=== PATIENT | female | born 1965 | race Caucasian/White ===

== ENCOUNTER 2018-02-12 12:10 | Emergency (ER) | payer MEDICAID ==
[2018-02-12 12:32] VITALS: BP 147/88; TEMP 99.2; O2SAT 97
[2018-02-12] MEDS ORDERED: KETOROLAC TROMETHAMINE INJ 30 MG/ML VIAL IM ONE (12:47)
--- NOTE | 2018-02-12 12:50 | ED.PDOC ---
History of Present Illness - General Chief Complaint: Back Pain or Injury Stated Complaint: Lumbar back discomfort, radiation of leg Time Seen by Provider: 02/12/18 12:35 Source: patient - History of Present Illness Initial Comments: the patient is a 52-year-old female presenting to the emergency room secondary to acute exacerbation of chronic low back pain. The patient has known and well-defined spinal stenosis of her lumbar spine given her chronic pain primarily down her left leg according to her. The patient apparently has insurance in [place] but not for [place]. She is in town for another month. She reports that she cannot take Lyrica or gabapentin secondary to shakiness and swelling. She has not been on any prescription medications for the last couple of months. She reports that she was scheduled for a laminectomy 3 or 4 months ago but had to leave the state to come to [facility] here in [place]. No incontinence. No weakness. No change in symptoms other than worsening of pain in her low back and down her left leg. No recent trauma. The patient did receive epidural steroid injections in the past. she reports that she has been doing stretching and exercising to help reduce back pain. She has been trying to do weight loss. Timing/Duration: unsure Severity: moderate Improving Factors: nothing Worsening Factors: nothing Associated Symptoms: denies symptoms Allergies/Adverse Reactions: Allergies NO KNOWN ALLERGY Allergy (Verified 06/26/15 14:17) Home Medications: Ambulatory Orders Levothyroxine Sodium [Synthroid] 100 mcg PO DAILY 07/12/15 Ljvqaxxrclytv-Eivd-Arouyqjuoo [Fioricet] 1 ea PO Q8H PRN #30 tab 02/12/18 Cyclobenzaprine HCl [Flexeril] 5 mg PO TID PRN #60 tab 02/12/18 Lisinopril 20 mg PO DAILY 02/12/18 Pravastatin Sodium 20 mg PO DAILY 02/12/18 predniSONE [Prednisone] 20 mg PO DAILY #7 tab 02/12/18 Review of Systems - Review of Systems Constitutional: States: no symptoms reported EENTM: States: no symptoms reported Respiratory: States: no symptoms reported Cardiology: States: no symptoms reported Gastrointestinal/Abdominal: States: no symptoms reported Genitourinary: States: no symptoms reported Musculoskeletal: States: see HPI Skin: States: no symptoms reported Neurological: States: see HPI Endocrine: States: no symptoms reported All other Systems: No Change from Baseline Past Medical History (General) - Patient Medical History Hx Stroke: No Hx Cardiac Disorders: Yes - hypercholesterolemia Hx Congestive Heart Failure: No Hx Hypertension: Yes Hx Thyroid Disease: Yes Hx Diabetes: No Hx Gastroesophageal Reflux: Yes Hx Renal Disease: Yes - Vaccination History Hx Tetanus, Diphtheria Vaccination: Yes Hx Influenza Vaccination: Yes - 2017 Hx Pneumococcal Vaccination: No - Social History Hx Tobacco Use: No Hx Alcohol Use: Yes - Female History Patient is a Female of Child Bearing Age (10 -59 yrs old): - 2014 Patient : No Family Medical History - Family History Mother Family History: No Known Living Status: Cause of : emphysema Physical Exam - Physical Exam General Appearance: Alert, Obvious distress Eye Exam: bilateral normal Ears, Nose, Throat: normal ENT inspection, normal pharynx Neck: full range of motion, supple Respiratory: no respiratory distress, no accessory muscle use Cardiovascular/Chest: normal peripheral pulses, no edema Peripheral Pulses: radial,right: 2+, radial,left: 2+, dorsalis pedis,right: 2+, dorsalis pedis,left: 2+ Rectal Exam: deferred Back Exam: other - the patient has diffuse discomfort to palpation around the L3 -L5 area. No visible evidence of any new trauma. There is palpable muscle spasm. 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 The patient was given a shot of Toradol here. She'll be written for Fioricet and Flexeril for as needed use as well as a week's worth of oral prednisone. She needs to continue her stretching and exercising. Mild topical heat may help. She needs to follow back up with her back specialist as soon as she can when she gets back to her home. If she is going to be in town for another month it may be worthwhile for her to obtain a appointment with her primary care doctor here for additional pain management during that time. ER warnings were given. the patient is not being written for Lyrica, Cymbalta or gabapentin secondary to intolerance in the past. 02/12/18 12:55 Departure - Departure Clinical Impression: Lumbar radicular pain Disposition: Discharge to Home or Self Care Condition: Fair Departure Forms: ED Discharge - Pt. Copy, Patient Portal Self Enrollment Instructions: DI for Back Pain With Sciatica Diet: regular diet Activity: increase activity as tolerated Referrals: Harsh Diaz MD [Primary Care Provider] - 1-2 Weeks Prescriptions: Sdfvlomednhnm-Tlwr-Ypasntakdm [Fioricet] 1 ea PO Q8H PRN #30 tab PRN Reason: Pain Cyclobenzaprine HCl [Flexeril] 5 mg PO TID PRN #60 tab PRN Reason: Muscle Spasms predniSONE [Prednisone] 20 mg PO DAILY #7 tab Home Medications: Ambulatory Orders Levothyroxine Sodium [Synthroid] 100 mcg PO DAILY 07/12/15 Aamnswfpwgada-Amgi-Ylysjcqvyu [Fioricet] 1 ea PO Q8H PRN #30 tab 02/12/18 Cyclobenzaprine HCl [Flexeril] 5 mg PO TID PRN #60 tab 02/12/18 Lisinopril 20 mg PO DAILY 02/12/18 Pravastatin Sodium 20 mg PO DAILY 02/12/18 predniSONE [Prednisone] 20 mg PO DAILY #7 tab 02/12/18 Additional Instructions: the patient is a 52-year-old female with a long-standing history of chronic low back pain from spinal stenosis presenting secondary to an acute on chronic flare. The patient was given a shot of Toradol here. She'll be written for Fioricet and Flexeril for as needed use as well as a week's worth of oral prednisone. She needs to continue her stretching and exercising. Mild topical heat may help. She needs to follow back up with her back specialist as soon as she can when she gets back to her home. If she is going to be in town for another month it may be worthwhile for her to obtain a appointment with her primary care doctor here for additional pain management during that time. ER warnings were given.
== END 2018-02-12 13:10 | disposition home or self-care (01) ==
LOC: ER 12:10
DX: M54.16 Radiculopathy, lumbar region (principal); E78.00 Pure hypercholesterolemia, unspecified; I10 Essential (primary) hypertension; E07.9 Disorder of thyroid, unspecified; K21.9 Gastro-esophageal reflux disease without esophagitis